=== PATIENT | female | born 1975 | race Caucasian/White ===

== ENCOUNTER 2017-12-28 14:59 | Inpatient (IN) | payer OTHER ==
[~2017-12-28 14:59] MED LIST: AMBIEN5 MG PO; BENADRYL50 MG PO; CIPRO HC OTIC S10 ML RIGHT EAR
[2017-12-28 18:19] VITALS: BP 113/65
[2017-12-28] MEDS ORDERED: DEXEDRINE, DEXT10 MG PO (19:06)
[2017-12-28] MEDS ORDERED: LYRICA75 MG PO (19:07)
[2017-12-28] MEDS ORDERED: ERGOCALCIF50000 UNIT PO (19:07)
[2017-12-28] MEDS ORDERED: SOMA350 MG PO (19:08)
[2017-12-28] MEDS ORDERED: BUSPAR5 MG PO (19:08)
[2017-12-28] MEDS ORDERED: REMERON15 M2 PO (19:09)
[2017-12-28] MEDS ORDERED: EFFEXOR37.5 MG PO (19:09)
[2017-12-28] MEDS ORDERED: TRAMADOL HCL E100 M1 PO (19:10)
[2017-12-28] MEDS ORDERED: WOMEN'S DAILY1 EAC4 PO (19:10)
[2017-12-28] MEDS ORDERED: AMBIEN10 MG PO (19:10)
[2017-12-28] MEDS ORDERED: VITRON-C TABLE1 EACH PO (19:11)
[2017-12-29 07:50] VITALS: BP 103/54
[2017-12-29 11:06] LABS: FOLIC ACID (FOLATE) 17.9 NG/ML (5.0-22.0)
[2017-12-29 15:37] VITALS: BP 111/65
[2017-12-30 07:22] VITALS: BP 123/65
[2017-12-30 15:47] VITALS: BP 94/62
[2017-12-30 21:11] VITALS: BP 101/53; BP 109/54
[2017-12-31 08:01] VITALS: BP 102/64
[2017-12-31 15:44] VITALS: BP 112/67
[2018-01-01 07:52] VITALS: BP 124/55
[2018-01-01] MEDS ORDERED: MINIPRESS2 MG PO ×2 (08:53→13:22)
[2018-01-01] MEDS ORDERED: EFFEXOR XR75 MG PO ×2 (08:55→13:24)
[2018-01-01] MEDS ORDERED: EFFEXOR XR37.5 MG PO ×2 (08:55→13:23)
[2018-01-01] MEDS ORDERED: INDERAL10 MG PO ×2 (08:55→13:21)
[2018-01-01] MEDS ORDERED: BUSPAR10 MG PO ×2 (08:55→13:23)
== END 2018-01-01 09:59 | disposition home or self-care (01) | DRG 885 ==
LOC: 1WEST 14:59 → ENRESERV 15:20 → 1WEST 18:06
PROVIDERS: Psychiatry & Neurology Psychiatry
DX: F33.2 Major depressive disorder, recurrent severe without psychotic features (principal); F43.12 Post-traumatic stress disorder, chronic; F60.9 Personality disorder, unspecified; F19.94 Other psychoactive substance use, unspecified with psychoactive substance-induced mood disorder; F12.10 Cannabis abuse, uncomplicated; Z76.5 Malingerer [conscious simulation]; Z59.9 Problem related to housing and economic circumstances, unspecified; Z87.442 Personal history of urinary calculi; Z90.710 Acquired absence of both cervix and uterus
CPT/HCPCS: 82306; 82607; 82746; 84443; 97150 GO; 97165 GO